=== PATIENT | female | born 1945 | race Caucasian/White ===

== ENCOUNTER 2016-12-26 17:57 | Emergency (ER) | payer OTHER ==
[~2016-12-26] VITALS: Ht 157.5 cm; Wt 68.0 kg
[~2016-12-26 17:57] MED LIST: Z.0.NO CURRENT MEDS
[2016-12-26 18:05] VITALS: BP 119/66; PULSE 68; RESP 28; TEMP 98.1; O2SAT 98
--- NOTE | 2016-12-26 18:39 | PD ---
HPI Chief Complaint: Anxiety Time Seen by Provider: 18:21 Travel History International Travel<30 days: No Contact w/Intl Traveler<30days: No Traveled to known affect area: No History of Present Illness HPI This 71-year-old female says she had an anxiety attack and was brought here by ambulance. She says she has not had anxiety attacks before. She is generally healthy. She is seeing a baseball player in having extensive workup done because she been having some dizzy spells. Today she was out with a friend and had a few drinks. She apparently became short of breath. The shortness of breath has resolved. 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 Menopausal: Yes Past Surgical History Appendectomy: Yes Gynecologic Surgery: Yes (HYSTERECTOMY) Hysterectomy: Yes Social History Alcohol Use: Yes (1 BEER DAILY) Tobacco Use: Yes (< 1 PACK DAILY) Substance Use: No Allergies-Medications (Allergen,Severity, Reaction): Coded Allergies: No Known Allergies (Verified , 12/26/16) Reported Meds & Prescriptions Reported Meds & Active Scripts Active No Active Prescriptions or Reported Medications Review of Systems General / Constitutional: No: Fever, Chills HENT: No: Headaches Cardiovascular: No: Chest Pain or Discomfort, Palpitations Gastrointestinal: No: Vomiting, Diarrhea Physical Exam Narrative GENERAL: Well-developed female. She is alert and coherent SKIN: Focused skin assessment warm/dry. HEAD: Atraumatic. Normocephalic. EYES: Pupils equal and round. No scleral icterus. No injection or drainage. ENT: No nasal bleeding or discharge. Mucous membranes pink and moist. NECK: Trachea midline. No JVD. CARDIOVASCULAR: Regular rate and rhythm. No murmur appreciated. RESPIRATORY: No accessory muscle use. Clear to auscultation. Breath sounds equal bilaterally. GASTROINTESTINAL: Abdomen soft, non-tender, nondistended. Hepatic and splenic margins not palpable. MUSCULOSKELETAL: No obvious deformities. No clubbing. No cyanosis. No edema. NEUROLOGICAL: Awake and alert. No obvious cranial nerve deficits. Motor grossly within normal limits. Normal speech. PSYCHIATRIC: Appropriate mood and affect; insight and judgment normal. Data Data Last Documented VS Vital Signs Date Time Temp Pulse Resp B/P Pulse Ox O2 Delivery O2 Flow Rate FiO2 5/18/17 18:08 68 28 12/26/16 18:05 98.1 119/66 98 [facility] Medical Decision Making Medical Screen Exam Complete: Yes Emergency Medical Condition: Yes Medical Record Reviewed: Yes Differential Diagnosis Differential includes anxiety attack, COPD, Narrative Course Patient is awake and alert and is declining treatment at this time. She is alert and oriented and quite coherent. She will be released Diagnosis Primary Impression: dyspnea, resolved Additional Instructions: Follow-up with your own doctor, return to have shortness of breath and chest pain Scripts No Active Prescriptions or Reported Meds Disposition: 01 DISCHARGE HOME Condition: Stable Mitchel Gonzalez MD December 26, 2016 18:39
[2016-12-26 18:44] VITALS: BP 116/79
== END 2016-12-26 18:49 | disposition home or self-care (01) ==
LOC: PHED 17:57
DX: F41.9 Anxiety disorder, unspecified (principal); R01.1 Cardiac murmur, unspecified; F17.210 Nicotine dependence, cigarettes, uncomplicated
CPT/HCPCS: 99283